=== PATIENT | male | born 1940 ===

== ENCOUNTER → 2017-09-22 | Outpatient (CLI) | payer MEDICARE, OTHER ==
[~2017-09-22] VITALS: Ht 165.1 cm; Wt 58.3 kg
[~2017-09-22] MED LIST: ACET-2744 PO; BACTDSB PO; LIDOCAINE HCL 2% 5 ML JELLY TP ONE; TERA1 PO
[2017-09-22 10:52] VITALS: BP 132/61
== END | disposition home or self-care (01) ==
LOC: HBOWC 10:32
PROVIDERS: ATTEND Internal Medicine
DX: S51.002D Unspecified open wound of left elbow, subsequent encounter (principal); G82.20 Paraplegia, unspecified; X58.XXXD Exposure to other specified factors, subsequent encounter
CPT/HCPCS: 11042